=== PATIENT | male | born 1955 | race Caucasian/White ===

== ENCOUNTER 2020-03-13 07:24 | Inpatient (IN) ==
[~2020-03-13 07:24] MED LIST: Acetaminophen IV 1,000 MG/100 ML INFUS..BTL IVPB ONE
[2020-03-13] MEDS ORDERED: CeFAZolin Syr 2,000MG/20 ML 2,000 MG/20 ML SYRINGE IVPB ONE (07:40)
[2020-03-13] MEDS ORDERED: Ringers Solution, Lactated 1,000 ML IVC SCH (07:45)
[2020-03-13] MEDS ORDERED: *HR* OxyCODONE Immed Rel 5 MG TABLET PO PRN (07:53)
[2020-03-13] MEDS ORDERED: Pregabalin 75 MG CAPSULE PO ONE (07:55)
[2020-03-13] MEDS ORDERED: Ondansetron 4 MG/2 ML VIAL IVP ONE (07:56)
[2020-03-13] MEDS ORDERED: *HR* Meperidine 25 MG/ML SYRINGE IVP PRN (07:56)
[2020-03-13] MEDS ORDERED: *HR* Succinylcholine 200 MG/10 ML VIAL IVP ONE (08:04)
[2020-03-13] MEDS ORDERED: *HR* Rocuronium Bromide 50 MG/5 ML VIAL ONE (08:04)
[2020-03-13] MEDS ORDERED: Lidocaine -MPF 2% 2 ML VIAL ONE (08:04)
[2020-03-13] MEDS ORDERED: *HR* FentaNYL (PF) 100 MCG/2 ML VIAL ONE (08:04)
[2020-03-13] MEDS ORDERED: Lidocaine -MPF 4% 5 ML AMPUL ONE (08:04)
[2020-03-13] MEDS ORDERED: *HR* Propofol 200 MG/20 ML VIAL IVP ONE (08:05)
[2020-03-13] MEDS ORDERED: EPHEDrine 50 MG/ML VIAL ONE (09:28)
[2020-03-13] MEDS ORDERED: Neostigmine Methylsulfate 3 MG/3 ML SYRINGE ONE (09:57)
[2020-03-13] MEDS ORDERED: Albuterol 2.5 MG/3 ML NEBULIZER ONE (10:47)
[2020-03-13] MEDS ORDERED: Albuterol 2.5 MG/3 ML NEBULIZER IH ONE (10:49)
[2020-03-13] MEDS ORDERED: Ipratropium/Albuterol Neb 3 ML IH ONE (11:06)
[2020-03-13] MEDS ORDERED: *HR* OxyCODONE/APAP 5/325 TABLET PO PRN (12:31)
[2020-03-13] MEDS ORDERED: Naloxone 0.4 MG/ML INJ IVP PRN (12:31)
[2020-03-13] MEDS: D5% in 0.45% NACL w KCl 20 MEQ/1,000 ML MLS IVC SCH (13:19)
[2020-03-13] MEDS: Ipratropium/Albuterol Neb 3 ML IH SCH ×2 (15:27→21:29)
[2020-03-13] MEDS: *HR* HYDROmorphone PF 0.5 MG/0.5 ML SYRINGE IVP PRN (18:55)
[2020-03-14] MEDS: *HR* HYDROmorphone PF 0.5 MG/0.5 ML SYRINGE IVP PRN (00:31)
[2020-03-14] MEDS: tiZANidine 4 MG TABLET PO PRN ×2 (00:31→20:30)
[2020-03-14] MEDS: hydrOXYzine pamoate 25 MG CAPSULE PO PRN ×2 (00:31→20:29)
[2020-03-14] MEDS: Ipratropium/Albuterol Neb 3 ML IH SCH ×4 (03:48→21:48)
[2020-03-14] MEDS: (Roflumilast [Daliresp] 500 MCG) PO SCH (08:07)
[2020-03-14] MEDS: Loratadine 10 MG TABLET PO SCH (08:07)
[2020-03-14] MEDS: Aspirin 81 MG TAB.CHEW PO SCH (08:07)
[2020-03-14] MEDS ORDERED: Ondansetron 4 MG/2 ML VIAL IVP PRN (08:19)
[2020-03-14] MEDS ORDERED: NON-FORMULARY MEDICATION 1 EACH EACH (Fluticasone/Umeclidin/Vilanter [Trelegy Ellipta 100- IH SCH (09:00)
[2020-03-14] MEDS: Tiotropium 18 MCG inhalation IH SCH (09:38)
[2020-03-14] MEDS: Budesonide/Formoterol 160/4.5 1 PUFF INH IH SCH ×2 (09:38→21:48)
[2020-03-14] MEDS ORDERED: Lidocaine Jelly 6ml 1 APPL/6 ML JEL.PF.APP TP ONE (10:26)
[2020-03-14] MEDS ORDERED: *HR* Metoprolol 5 MG/5 ML VIAL IVP ONE (11:16)
[2020-03-14 11:49] LABS: Basophils % 0.1 %; Eosinophils % 0.2 %; Hematocrit 38.5 % (37.5-50.1); Hemoglobin 12.8 g/dL (12.9-16.9); Immature Granulocytes % 0.6 % (0-4); Lymphocytes # 0.4 K/mcL (0.6-4.6); Lymphocytes % 3.8 %; Mean Corpuscular HGB Conc 33.2 g/dL (31.6-35.5); Mean Corpuscular Hemoglobin 24.4 pg (28.0-33.3); Mean Corpuscular Volume 73.3 fL (83.0-100.0); Mean Platelet Volume 8.6 fL (9.4-12.4); Monocytes # 0.7 K/mcL (0.0-1.3); Neutrophils # 9.3 K/mcL (1.6-8.9); Platelet Count 302 K/mcL (140-400); Red Blood Count 5.25 M/mcL (4.19-5.50); Red Cell Distribution Width 11.8 % (11.5-14.5); Segmented Neutrophils % 88.3 %; White Blood Count 10.5 K/mcL (4.3-11.1)
[2020-03-14] MEDS: *HR* HYDROcodone/Acet 5/325 mg TABLET PO PRN ×2 (11:50→23:07)
[2020-03-14] MEDS: 0.9 % Sodium Chloride 1,000 ML IVC SCH ×2 (11:52→13:58)
[2020-03-14 12:08] LABS: Alanine Aminotransferase 8 Units/L (7-52); Albumin 3.8 g/dL (3.5-5.7); Albumin/Globulin Ratio 1.6 (1.1-2.2); Alkaline Phosphatase 119 Units/L (34-104); Aspartate Amino Transferase 10 Units/L (13-39); BUN/Creatinine Ratio 17 (6-26); Bilirubin,Total 0.9 mg/dL (0.3-1.0); Blood Urea Nitrogen 11 mg/dL (8-23); Calcium 8.5 mg/dL (8.6-10.3); Carbon Dioxide 22 mEq/L (23-29); Chloride 88 mEq/L (98-107); Globulin 2.4 g/dL (2.4-3.5); Glucose 124 mg/dL (70-105); Osmolality,Calculated 253 (280-300); Potassium 4.5 mEq/L (3.5-5.1); Sodium 121 mEq/L (136-145); Total Protein 6.2 g/dL (6.4-8.9); Troponin I < 0.03 ng/mL (< 0.04); eGFR For African Americans > 60 (> 60); eGFR For Non-African Americans > 60 (> 60)
[2020-03-14] MEDS: D5% in 0.45% NACL w KCl 20 MEQ/1,000 ML MLS IVC SCH (12:23)
[2020-03-14] MEDS ORDERED: 0.9 % Sodium Chloride 1,000 ML IVC SCH (14:00)
[2020-03-14] MEDS: *HR* Metoprolol 5 MG/5 ML VIAL IVP PRN (23:50)
[2020-03-15] MEDS: 0.9 % Sodium Chloride 1,000 ML IVC SCH ×2 (01:31→20:34)
[2020-03-15] MEDS: *HR* Metoprolol 5 MG/5 ML VIAL IVP PRN ×2 (01:31→20:34)
[2020-03-15] MEDS: Ipratropium/Albuterol Neb 3 ML IH SCH ×4 (03:46→21:48)
[2020-03-15] MEDS: Loratadine 10 MG TABLET PO SCH (08:07)
[2020-03-15] MEDS: *HR* HYDROcodone/Acet 5/325 mg TABLET PO PRN (08:08)
[2020-03-15] MEDS: (Roflumilast [Daliresp] 500 MCG) PO SCH (08:08)
[2020-03-15] MEDS: Aspirin 81 MG TAB.CHEW PO SCH (08:08)
[2020-03-15] MEDS: Budesonide/Formoterol 160/4.5 1 PUFF INH IH SCH ×2 (09:28→21:47)
[2020-03-15] MEDS: Tiotropium 18 MCG inhalation IH SCH (09:29)
[2020-03-15 10:42] LABS: BUN/Creatinine Ratio 20 (6-26); Blood Urea Nitrogen 11 mg/dL (8-23); Calcium 8.2 mg/dL (8.6-10.3); Carbon Dioxide 28 mEq/L (23-29); Chloride 92 mEq/L (98-107); Glucose 100 mg/dL (70-105); Magnesium 1.8 mg/dL (1.6-2.6); Osmolality,Calculated 261 (280-300); Phosphorous 2.7 mg/dL (2.7-4.5); Potassium 4.3 mEq/L (3.5-5.1); Sodium 126 mEq/L (136-145); eGFR For African Americans > 60 (> 60); eGFR For Non-African Americans > 60 (> 60)
[2020-03-15] MEDS: tiZANidine 4 MG TABLET PO PRN (20:33)
[2020-03-15] MEDS: hydrOXYzine pamoate 25 MG CAPSULE PO PRN (20:33)
[2020-03-15] MEDS: DilTIAZem 50 MG/50 ML IV.SOLN IVC SCH (23:43)
[2020-03-16 02:28] LABS: Hematocrit 33.4 % (37.5-50.1); Hemoglobin 10.7 g/dL (12.9-16.9); Mean Corpuscular Volume 74.9 fL (83.0-100.0); Mean Platelet Volume 8.6 fL (9.4-12.4); Platelet Count 232 K/mcL (140-400); Red Blood Count 4.46 M/mcL (4.19-5.50); Red Cell Distribution Width 11.9 % (11.5-14.5); White Blood Count 8.3 K/mcL (4.3-11.1)
[2020-03-16 02:44] LABS: BUN/Creatinine Ratio 26 (6-26); Blood Urea Nitrogen 12 mg/dL (8-23); Calcium 7.7 mg/dL (8.6-10.3); Carbon Dioxide 24 mEq/L (23-29); Chloride 93 mEq/L (98-107); Glucose 99 mg/dL (70-105); Magnesium 1.7 mg/dL (1.6-2.6); Osmolality,Calculated 262 (280-300); Phosphorous 2.5 mg/dL (2.7-4.5); Potassium 3.9 mEq/L (3.5-5.1); Sodium 126 mEq/L (136-145); eGFR For African Americans > 60 (> 60); eGFR For Non-African Americans > 60 (> 60)
[2020-03-16] MEDS: Levalbuterol Neb 1.25 MG/3 ML IH SCH ×6 (03:28→23:47)
[2020-03-16] MEDS ORDERED: *HR* Enoxaparin 40 MG/0.4 ML SYRINGE SQ SCH (06:00)
[2020-03-16] MEDS ORDERED: Sodium Phosphate 30 MMOL in 0.9 % Sodium Chloride 100 ML IVPB ONE (08:09)
[2020-03-16] MEDS: (Roflumilast [Daliresp] 500 MCG) PO SCH (09:10)
[2020-03-16] MEDS: Aspirin 81 MG TAB.CHEW PO SCH (09:10)
[2020-03-16] MEDS: Loratadine 10 MG TABLET PO SCH (09:10)
[2020-03-16] MEDS ORDERED: Ipratropium Neb 0.5 MG NEBULIZER ONE (10:15)
[2020-03-16] MEDS: Tiotropium 18 MCG inhalation IH SCH (10:28)
[2020-03-16] MEDS: Ipratropium Neb 0.5 MG NEBULIZER IH SCH ×5 (10:29→23:47)
[2020-03-16] MEDS: Budesonide/Formoterol 160/4.5 1 PUFF INH IH SCH ×2 (10:29→20:20)
[2020-03-16] MEDS: DilTIAZem 50 MG/50 ML IV.SOLN IVC SCH (10:40)
[2020-03-16] MEDS: MethylPREDNISolone 40 MG/ML VIAL IVP SCH ×3 (10:41→23:46)
[2020-03-16] MEDS: cefTRIAXone 1,000 MG in Water for inj. (sterile) 10 ML IVP SCH (10:41)
[2020-03-16] MEDS: Azithromycin 500 MG in 0.9 % Sodium Chloride 250 ML IVPB SCH (10:55)
[2020-03-16] MEDS: *HR* Enoxaparin 80 MG/0.8 ML SYRINGE SQ SCH (17:37)
[2020-03-16] MEDS: *HR* Metoprolol 5 MG/5 ML VIAL IVP PRN (17:49)
[2020-03-16] MEDS ORDERED: Perflutren Lipid Microsphere 1.3 ML in 0.9 % Sodium Chloride 8.7 ML IVP ONE (19:58)
[2020-03-16] MEDS: 0.9 % Sodium Chloride 1,000 ML IVC SCH (21:12)
[2020-03-16] MEDS ORDERED: *HR* Metoprolol 5 MG/5 ML VIAL IVP ONE (23:39)
[2020-03-17] MEDS: Levalbuterol Neb 1.25 MG/3 ML IH SCH ×6 (03:46→23:58)
[2020-03-17] MEDS: Ipratropium Neb 0.5 MG NEBULIZER IH SCH ×3 (03:46→11:15)
[2020-03-17] MEDS: *HR* Enoxaparin 80 MG/0.8 ML SYRINGE SQ SCH (05:48)
[2020-03-17] MEDS: DilTIAZem 50 MG/50 ML IV.SOLN IVC SCH (05:49)
[2020-03-17 06:52] LABS: Hematocrit 35.8 % (37.5-50.1); Hemoglobin 11.7 g/dL (12.9-16.9); Mean Corpuscular HGB Conc 32.7 g/dL (31.6-35.5); Mean Corpuscular Hemoglobin 24.6 pg (28.0-33.3); Mean Corpuscular Volume 75.4 fL (83.0-100.0); Mean Platelet Volume 8.9 fL (9.4-12.4); Platelet Count 307 K/mcL (140-400); Red Blood Count 4.75 M/mcL (4.19-5.50); Red Cell Distribution Width 11.9 % (11.5-14.5); White Blood Count 4.8 K/mcL (4.3-11.1)
[2020-03-17 07:10] LABS: BUN/Creatinine Ratio 43 (6-26); Blood Urea Nitrogen 20 mg/dL (8-23); Calcium 8.3 mg/dL (8.6-10.3); Carbon Dioxide 23 mEq/L (23-29); Chloride 95 mEq/L (98-107); Glucose 159 mg/dL (70-105); Osmolality,Calculated 274 (280-300); Potassium 4.2 mEq/L (3.5-5.1); Sodium 129 mEq/L (136-145); eGFR For African Americans > 60 (> 60); eGFR For Non-African Americans > 60 (> 60)
[2020-03-17 07:14] LABS: Thyroid Stimulating Hormone 0.111 mcIU/mL (0.340-5.600)
[2020-03-17] MEDS: Budesonide/Formoterol 160/4.5 1 PUFF INH IH SCH ×2 (07:30→20:47)
[2020-03-17] MEDS: Tiotropium 18 MCG inhalation IH SCH (07:32)
[2020-03-17] MEDS: Loratadine 10 MG TABLET PO SCH (10:55)
[2020-03-17] MEDS: Aspirin 81 MG TAB.CHEW PO SCH (10:55)
[2020-03-17] MEDS: Azithromycin 500 MG in 0.9 % Sodium Chloride 250 ML IVPB SCH (10:56)
[2020-03-17] MEDS: DilTIAZem CD (24hr) 120 MG CAP.ER.24H PO SCH (10:56)
[2020-03-17] MEDS: cefTRIAXone 1,000 MG in Water for inj. (sterile) 10 ML IVP SCH (10:56)
[2020-03-17] MEDS: MethylPREDNISolone 40 MG/ML VIAL IVP SCH ×3 (10:57→23:07)
[2020-03-17] MEDS: Metoprolol XL (24 HR) Succ 25 MG TAB.ER.24H PO SCH ×2 (13:39→20:30)
[2020-03-17] MEDS: Acetylcysteine 10% 2 ML INHSOL IH SCH ×3 (15:34→23:58)
[2020-03-17] MEDS: 0.9 % Sodium Chloride 1,000 ML IVC SCH (17:28)
[2020-03-17] MEDS: Apixaban 5 MG TABLET PO SCH (20:30)
[2020-03-18] MEDS: Levalbuterol Neb 1.25 MG/3 ML IH SCH ×6 (04:13→23:45)
[2020-03-18] MEDS ORDERED: Ipratropium Neb 0.5 MG NEBULIZER ONE (07:22)
[2020-03-18] MEDS: Ipratropium Neb 0.5 MG NEBULIZER IH SCH ×5 (07:23→23:45)
[2020-03-18] MEDS: Budesonide/Formoterol 160/4.5 1 PUFF INH IH SCH ×2 (07:24→19:22)
[2020-03-18] MEDS: Acetylcysteine 10% 2 ML INHSOL IH SCH (07:24)
[2020-03-18 07:50] LABS: BUN/Creatinine Ratio 72 (6-26); Blood Urea Nitrogen 31 mg/dL (8-23); Calcium 8.8 mg/dL (8.6-10.3); Carbon Dioxide 29 mEq/L (23-29); Chloride 98 mEq/L (98-107); Glucose 149 mg/dL (70-105); Magnesium 2.1 mg/dL (1.6-2.6); Osmolality,Calculated 287 (280-300); Phosphorous 2.7 mg/dL (2.7-4.5); Potassium 4.4 mEq/L (3.5-5.1); Sodium 134 mEq/L (136-145); eGFR For African Americans > 60 (> 60); eGFR For Non-African Americans > 60 (> 60)
[2020-03-18 07:57] LABS: Eosinophils % 0.2 %; Hematocrit 33.6 % (37.5-50.1); Hemoglobin 10.9 g/dL (12.9-16.9); Immature Granulocytes % 0.8 % (0-4); Lymphocytes # 0.3 K/mcL (0.6-4.6); Lymphocytes % 6.6 %; Mean Corpuscular HGB Conc 32.4 g/dL (31.6-35.5); Mean Corpuscular Hemoglobin 24.3 pg (28.0-33.3); Mean Corpuscular Volume 74.8 fL (83.0-100.0); Mean Platelet Volume 9.1 fL (9.4-12.4); Monocytes # 0.3 K/mcL (0.0-1.3); Monocytes % 5.6 %; Neutrophils # 4.5 K/mcL (1.6-8.9); Platelet Count 295 K/mcL (140-400); Red Blood Count 4.49 M/mcL (4.19-5.50); Red Cell Distribution Width 12.1 % (11.5-14.5); Segmented Neutrophils % 86.8 %; White Blood Count 5.2 K/mcL (4.3-11.1)
[2020-03-18] MEDS: Azithromycin 500 MG in 0.9 % Sodium Chloride 250 ML IVPB SCH (10:31)
[2020-03-18] MEDS: cefTRIAXone 1,000 MG in Water for inj. (sterile) 10 ML IVP SCH (10:31)
[2020-03-18] MEDS: Metoprolol XL (24 HR) Succ 25 MG TAB.ER.24H PO SCH ×2 (10:32→20:07)
[2020-03-18] MEDS: Loratadine 10 MG TABLET PO SCH (10:32)
[2020-03-18] MEDS: Aspirin 81 MG TAB.CHEW PO SCH (10:32)
[2020-03-18] MEDS: MethylPREDNISolone 40 MG/ML VIAL IVP SCH (10:32)
[2020-03-18] MEDS: DilTIAZem CD (24hr) 120 MG CAP.ER.24H PO SCH (10:32)
[2020-03-18] MEDS: Apixaban 5 MG TABLET PO SCH ×2 (10:32→20:07)
[2020-03-18] MEDS ORDERED: *HR* Belladonna Alkaloids/Opium 30 MG RECTAL SUPPOSITORY RC ONE (16:05)
[2020-03-18] MEDS ORDERED: Azithromycin 250 MG TABLET PO SCH (16:15)
[2020-03-18] MEDS: 0.9 % Sodium Chloride 1,000 ML IVC SCH (16:41)
[2020-03-19] MEDS: Levalbuterol Neb 1.25 MG/3 ML IH SCH ×6 (03:15→23:51)
[2020-03-19] MEDS: Ipratropium Neb 0.5 MG NEBULIZER IH SCH ×6 (03:15→23:52)
[2020-03-19 04:15] LABS: Hematocrit 32.4 % (37.5-50.1); Hemoglobin 10.3 g/dL (12.9-16.9); Immature Granulocytes % 0.7 % (0-4); Lymphocytes # 0.4 K/mcL (0.6-4.6); Lymphocytes % 6.8 %; Mean Corpuscular HGB Conc 31.8 g/dL (31.6-35.5); Mean Corpuscular Hemoglobin 24.8 pg (28.0-33.3); Mean Corpuscular Volume 77.9 fL (83.0-100.0); Mean Platelet Volume 8.5 fL (9.4-12.4); Monocytes # 0.4 K/mcL (0.0-1.3); Monocytes % 6.8 %; Neutrophils # 4.8 K/mcL (1.6-8.9); Platelet Count 259 K/mcL (140-400); Red Blood Count 4.16 M/mcL (4.19-5.50); Red Cell Distribution Width 12.1 % (11.5-14.5); Segmented Neutrophils % 85.7 %; White Blood Count 5.6 K/mcL (4.3-11.1)
[2020-03-19 04:38] LABS: BUN/Creatinine Ratio 71 (6-26); Blood Urea Nitrogen 30 mg/dL (8-23); Calcium 8.7 mg/dL (8.6-10.3); Carbon Dioxide 32 mEq/L (23-29); Chloride 97 mEq/L (98-107); Glucose 146 mg/dL (70-105); Osmolality,Calculated 287 (280-300); Phosphorous 2.8 mg/dL (2.7-4.5); Potassium 3.9 mEq/L (3.5-5.1); Sodium 134 mEq/L (136-145); eGFR For African Americans > 60 (> 60); eGFR For Non-African Americans > 60 (> 60)
[2020-03-19] MEDS: Budesonide/Formoterol 160/4.5 1 PUFF INH IH SCH ×2 (07:39→19:28)
[2020-03-19 08:00] LABS: % Iron Saturation 24 % (20-55); Iron 66 mcg/dL (65-175); Transferrin 197 mg/dL (203-362)
[2020-03-19] MEDS: Azithromycin 250 MG TABLET PO SCH (08:57)
[2020-03-19] MEDS: Metoprolol XL (24 HR) Succ 25 MG TAB.ER.24H PO SCH ×2 (08:57→20:26)
[2020-03-19] MEDS: Loratadine 10 MG TABLET PO SCH (08:58)
[2020-03-19] MEDS: predniSONE 20 MG TABLET PO SCH (08:58)
[2020-03-19] MEDS: hydrOXYzine pamoate 25 MG CAPSULE PO PRN ×3 (08:59→20:26)
[2020-03-19] MEDS: Aspirin 81 MG TAB.CHEW PO SCH (08:59)
[2020-03-19] MEDS: DilTIAZem CD (24hr) 120 MG CAP.ER.24H PO SCH (08:59)
[2020-03-19] MEDS: Apixaban 5 MG TABLET PO SCH ×2 (08:59→09:06)
[2020-03-19] MEDS: cefTRIAXone 1,000 MG in Water for inj. (sterile) 10 ML IVP SCH (08:59)
[2020-03-19] MEDS: tiZANidine 4 MG TABLET PO PRN ×3 (08:59→22:29)
[2020-03-20] MEDS: Ipratropium Neb 0.5 MG NEBULIZER IH SCH ×4 (03:56→15:53)
[2020-03-20] MEDS: Levalbuterol Neb 1.25 MG/3 ML IH SCH ×4 (03:56→15:53)
[2020-03-20 06:44] LABS: Basophils % 0.2 %; Eosinophils % 0.3 %; Hematocrit 36.9 % (37.5-50.1); Hemoglobin 11.3 g/dL (12.9-16.9); Immature Granulocytes % 0.5 % (0-4); Lymphocytes # 0.7 K/mcL (0.6-4.6); Lymphocytes % 12.5 %; Mean Corpuscular HGB Conc 30.6 g/dL (31.6-35.5); Mean Corpuscular Hemoglobin 23.9 pg (28.0-33.3); Mean Corpuscular Volume 78.2 fL (83.0-100.0); Mean Platelet Volume 8.2 fL (9.4-12.4); Monocytes # 0.6 K/mcL (0.0-1.3); Monocytes % 10.2 %; Neutrophils # 4.4 K/mcL (1.6-8.9); Platelet Count 243 K/mcL (140-400); Red Blood Count 4.72 M/mcL (4.19-5.50); Red Cell Distribution Width 11.9 % (11.5-14.5); Segmented Neutrophils % 76.3 %; White Blood Count 5.8 K/mcL (4.3-11.1)
[2020-03-20 07:16] LABS: BUN/Creatinine Ratio 51 (6-26); Blood Urea Nitrogen 22 mg/dL (8-23); Calcium 8.8 mg/dL (8.6-10.3); Carbon Dioxide 33 mEq/L (23-29); Chloride 96 mEq/L (98-107); Glucose 101 mg/dL (70-105); Magnesium 2.1 mg/dL (1.6-2.6); Osmolality,Calculated 283 (280-300); Potassium 3.8 mEq/L (3.5-5.1); Sodium 135 mEq/L (136-145); eGFR For African Americans > 60 (> 60); eGFR For Non-African Americans > 60 (> 60)
[2020-03-20] MEDS: Budesonide/Formoterol 160/4.5 1 PUFF INH IH SCH (07:31)
[2020-03-20] MEDS: cefTRIAXone 1,000 MG in Water for inj. (sterile) 10 ML IVP SCH (08:02)
[2020-03-20] MEDS: Loratadine 10 MG TABLET PO SCH (08:03)
[2020-03-20] MEDS: Aspirin 81 MG TAB.CHEW PO SCH (08:03)
[2020-03-20] MEDS: DilTIAZem CD (24hr) 120 MG CAP.ER.24H PO SCH (08:03)
[2020-03-20] MEDS: Azithromycin 250 MG TABLET PO SCH (08:03)
[2020-03-20] MEDS: Metoprolol XL (24 HR) Succ 25 MG TAB.ER.24H PO SCH (08:03)
[2020-03-20] MEDS: predniSONE 20 MG TABLET PO SCH (08:03)
[2020-03-20] MEDS: hydrOXYzine pamoate 25 MG CAPSULE PO PRN ×2 (08:04→14:12)
[2020-03-20] MEDS: tiZANidine 4 MG TABLET PO PRN ×2 (08:04→14:12)
[2020-03-20 11:48] VITALS: BP 122/75
== END 2020-03-20 17:34 | DRG 350 ==
LOC: SAMDAY 07:24 → 2ANU 12:59 → SUATTDRO 03-15 10:29
PROVIDERS: ADMIT Surgery; ATTEND Internal Medicine

== ENCOUNTER 2020-04-15 13:53 | Inpatient (IN) ==
[2020-04-15] MEDS ORDERED: methylPREDNISolone 125 MG/2 ML VIAL IVP ONE (14:19)
[2020-04-15] MEDS ORDERED: Isovue-370 500 ML BOTTLE IVP ONE (14:23)
[2020-04-15 14:45] LABS: Basophils % 0.2 %; Eosinophils % 0.2 %; Hematocrit 38.8 % (37.5-50.1); Hemoglobin 12.4 g/dL (12.9-16.9); Immature Granulocytes % 0.5 % (0-4); Lymphocytes # 0.8 K/mcL (0.6-4.6); Lymphocytes % 6.9 %; Mean Corpuscular Hemoglobin 25.2 pg (28.0-33.3); Mean Corpuscular Volume 78.9 fL (83.0-100.0); Mean Platelet Volume 8.7 fL (9.4-12.4); Monocytes # 0.6 K/mcL (0.0-1.3); Monocytes % 5.2 %; Neutrophils # 10.5 K/mcL (1.6-8.9); Platelet Count 229 K/mcL (140-400); Red Blood Count 4.92 M/mcL (4.19-5.50); Red Cell Distribution Width 14.3 % (11.5-14.5)
[2020-04-15 14:56] LABS: BUN/Creatinine Ratio 33 (6-26); Blood Urea Nitrogen 16 mg/dL (8-23); Calcium 8.6 mg/dL (8.6-10.3); Carbon Dioxide 30 mEq/L (23-29); Chloride 97 mEq/L (98-107); Glucose 110 mg/dL (70-105); Osmolality,Calculated 284 (280-300); Potassium 3.2 mEq/L (3.5-5.1); Sodium 136 mEq/L (136-145); eGFR For African Americans > 60 (> 60); eGFR For Non-African Americans > 60 (> 60)
[2020-04-15] MEDS ORDERED: Potassium Chloride Elixir 20 MEQ/15 ML UDC PO ONE (15:22)
[2020-04-15] MEDS ORDERED: Piperacillin/Tazobactam 3.375 GM in 0.9 % Sodium Chloride Mini Bag 100 ML IVPB ONE (16:17)
[2020-04-15] MEDS ORDERED: Acetaminophen 325 MG TABLET PO PRN (16:44)
[2020-04-15] MEDS ORDERED: Ondansetron 4 MG/2 ML VIAL IVP PRN (16:44)
[2020-04-15 17:06] LABS: Adenovirus Not Detected (Not Detect); Bordetella Pertussis Not Detected (Not Detect); Chlamydophila pneumoniae Not Detected (Not Detect); Coronavirus 229E Not Detected (Not Detect); Coronavirus HKU1 Not Detected (Not Detect); Coronavirus NL63 Not Detected (Not Detect); Coronavirus OC43 Not Detected (Not Detect); Human Metapneumovirus Not Detected (Not Detect); Human Rhinovirus/Enterovirus Not Detected (Not Detect); Influenza A Subtype 2009 H1 Not Detected (Not Detect); Influenza B Not Detected (Not Detect); Mycoplasma pneumoniae Not Detected (Not Detect); Parainfluenza Virus 1 Not Detected (Not Detect); Parainfluenza Virus 2 Not Detected (Not Detect); Parainfluenza Virus 3 Not Detected (Not Detect); Parainfluenza Virus 4 Not Detected (Not Detect); Respiratory Syncytial Virus Not Detected (Not Detect)
[2020-04-15 17:45] LABS: Lactate Dehydrogenase 206 Units/L (140-271); Uric Acid 2.2 mg/dL (2.3-7.6)
[2020-04-15] MEDS: Ipratropium/Albuterol Neb 3 ML IH SCH ×2 (18:02→21:24)
[2020-04-15 18:03] LABS: INR 1.8; Prothrombin Time 20.8 Seconds (9.4-12.1)
[2020-04-15 18:06] LABS: Activated Partial Thrombo Time 40.4 Seconds (26.0-36.0)
[2020-04-15] MEDS: Piperacillin/Tazobactam 3.375 GM in 0.9 % Sodium Chloride Mini Bag 100 ML IVPB SCH (23:51)
[2020-04-16] MEDS: Ipratropium/Albuterol Neb 3 ML IH SCH ×4 (03:13→22:55)
[2020-04-16 03:48] LABS: Hematocrit 33.6 % (37.5-50.1); Hemoglobin 10.9 g/dL (12.9-16.9); Mean Corpuscular HGB Conc 32.4 g/dL (31.6-35.5); Mean Corpuscular Hemoglobin 25.3 pg (28.0-33.3); Platelet Count 220 K/mcL (140-400); Red Blood Count 4.31 M/mcL (4.19-5.50); Red Cell Distribution Width 14.1 % (11.5-14.5); White Blood Count 4.6 K/mcL (4.3-11.1)
[2020-04-16 04:00] LABS: INR 1.5; Prothrombin Time 16.9 Seconds (9.4-12.1)
[2020-04-16 04:16] LABS: BUN/Creatinine Ratio 42 (6-26); Blood Urea Nitrogen 15 mg/dL (8-23); Calcium 8.2 mg/dL (8.6-10.3); Carbon Dioxide 26 mEq/L (23-29); Chloride 103 mEq/L (98-107); Glucose 146 mg/dL (70-105); Magnesium 1.9 mg/dL (1.6-2.6); Osmolality,Calculated 283 (280-300); Phosphorous 2.8 mg/dL (2.7-4.5); Potassium 4.5 mEq/L (3.5-5.1); Sodium 135 mEq/L (136-145); eGFR For African Americans > 60 (> 60); eGFR For Non-African Americans > 60 (> 60)
[2020-04-16 04:19] LABS: Troponin I 0.04 ng/mL (< 0.04)
[2020-04-16] MEDS: Piperacillin/Tazobactam 3.375 GM in 0.9 % Sodium Chloride Mini Bag 100 ML IVPB SCH ×2 (08:30→15:39)
[2020-04-16] MEDS ORDERED: (Roflumilast [Daliresp] 500 MCG) PO SCH (09:00)
[2020-04-16] MEDS ORDERED: NON-FORMULARY MEDICATION 1 EACH EACH (Fluticasone/Umeclidin/Vilanter [Trelegy Ellipta 100- IH SCH (09:00)
[2020-04-16] MEDS ORDERED: *HR* Midazolam HCl 2 MG/2 ML VIAL ONE (09:07)
[2020-04-16] MEDS ORDERED: *HR* FentaNYL (PF) 100 MCG/2 ML VIAL ONE (09:07)
[2020-04-16] MEDS ORDERED: *HR* Propofol 200 MG/20 ML VIAL IVP ONE (09:08)
[2020-04-16] MEDS ORDERED: Tiotropium 18 MCG inhalation IH SCH (10:00)
[2020-04-16] MEDS: Budesonide/Formoterol 160/4.5 1 PUFF INH IH SCH ×2 (10:11→22:56)
[2020-04-16] MEDS ORDERED: Lidocaine -MPF 2% 2 ML VIAL ONE (11:09)
[2020-04-16] MEDS ORDERED: Ondansetron 4 MG/2 ML VIAL ONE (11:09)
[2020-04-16] MEDS ORDERED: *HR* Rocuronium Bromide 50 MG/5 ML VIAL ONE (11:09)
[2020-04-16] MEDS ORDERED: Dexamethasone 4 MG/ML VIAL ONE (11:09)
[2020-04-16] MEDS ORDERED: *HR* PHENYLEPHRINE 1,000 MCG/10 ML SYRINGE IVP ONE (11:10)
[2020-04-16] MEDS ORDERED: Azithromycin 250 MG TABLET PO ONE (12:39)
[2020-04-16] MEDS: DilTIAZem CD (24hr) 120 MG CAP.ER.24H PO SCH (12:48)
[2020-04-16] MEDS: Loratadine 10 MG TABLET PO SCH (12:50)
[2020-04-16] MEDS: predniSONE 20 MG TABLET PO SCH (12:51)
[2020-04-16] MEDS: Aspirin 81 MG TAB.CHEW PO SCH (12:51)
[2020-04-16] MEDS: Fluticasone Propionate Nasal 50 MCG/SPRAY BOTTLE NS SCH (12:58)
[2020-04-16] MEDS: Apixaban 5 MG TABLET PO SCH ×2 (13:01→20:05)
[2020-04-16 14:35] LABS: Appearance of Body Fluid Slightly Hazy (Clear); Volume of Body Fluid 15 mL
[2020-04-17] MEDS: Piperacillin/Tazobactam 3.375 GM in 0.9 % Sodium Chloride Mini Bag 100 ML IVPB SCH ×4 (00:11→23:43)
[2020-04-17] MEDS: Ipratropium/Albuterol Neb 3 ML IH SCH ×4 (03:37→21:42)
[2020-04-17 04:34] LABS: Hematocrit 35.5 % (37.5-50.1); Mean Corpuscular Hemoglobin 24.4 pg (28.0-33.3); Mean Corpuscular Volume 78.9 fL (83.0-100.0); Mean Platelet Volume 8.9 fL (9.4-12.4); Platelet Count 263 K/mcL (140-400); Red Cell Distribution Width 14.5 % (11.5-14.5)
[2020-04-17 04:44] LABS: BUN/Creatinine Ratio 43 (6-26); Blood Urea Nitrogen 17 mg/dL (8-23); Calcium 7.9 mg/dL (8.6-10.3); Carbon Dioxide 30 mEq/L (23-29); Chloride 102 mEq/L (98-107); Glucose 143 mg/dL (70-105); Osmolality,Calculated 286 (280-300); Potassium 4.1 mEq/L (3.5-5.1); Sodium 136 mEq/L (136-145); eGFR For African Americans > 60 (> 60); eGFR For Non-African Americans > 60 (> 60)
[2020-04-17] MEDS: Aspirin 81 MG TAB.CHEW PO SCH (08:11)
[2020-04-17] MEDS: Azithromycin 250 MG TABLET PO SCH (08:11)
[2020-04-17] MEDS: DilTIAZem CD (24hr) 120 MG CAP.ER.24H PO SCH (08:11)
[2020-04-17] MEDS: Fluticasone Propionate Nasal 50 MCG/SPRAY BOTTLE NS SCH (08:12)
[2020-04-17] MEDS: Apixaban 5 MG TABLET PO SCH ×2 (08:12→21:08)
[2020-04-17] MEDS: predniSONE 20 MG TABLET PO SCH (08:12)
[2020-04-17] MEDS: Loratadine 10 MG TABLET PO SCH (08:12)
[2020-04-17] MEDS: Budesonide/Formoterol 160/4.5 1 PUFF INH IH SCH ×2 (11:01→21:42)
[2020-04-18] MEDS: Ipratropium/Albuterol Neb 3 ML IH SCH ×4 (03:53→21:28)
[2020-04-18] MEDS ORDERED: 0.9 % Sodium Chloride 250 ML IVC ONE (04:37)
[2020-04-18] MEDS: Fluticasone Propionate Nasal 50 MCG/SPRAY BOTTLE NS SCH (08:35)
[2020-04-18] MEDS: Aspirin 81 MG TAB.CHEW PO SCH (08:37)
[2020-04-18] MEDS: Azithromycin 250 MG TABLET PO SCH (08:37)
[2020-04-18] MEDS: Apixaban 5 MG TABLET PO SCH ×2 (08:38→20:50)
[2020-04-18] MEDS: Loratadine 10 MG TABLET PO SCH (08:38)
[2020-04-18] MEDS: Piperacillin/Tazobactam 3.375 GM in 0.9 % Sodium Chloride Mini Bag 100 ML IVPB SCH (08:38)
[2020-04-18] MEDS: predniSONE 20 MG TABLET PO SCH (08:38)
[2020-04-18] MEDS: DilTIAZem CD (24hr) 120 MG CAP.ER.24H PO SCH (08:38)
[2020-04-18] MEDS: Budesonide/Formoterol 160/4.5 1 PUFF INH IH SCH ×2 (09:27→21:28)
[2020-04-19 03:00] LABS: Hematocrit 37.1 % (37.5-50.1); Hemoglobin 11.6 g/dL (12.9-16.9); Mean Corpuscular HGB Conc 31.3 g/dL (31.6-35.5); Mean Corpuscular Hemoglobin 24.5 pg (28.0-33.3); Mean Corpuscular Volume 78.4 fL (83.0-100.0); Mean Platelet Volume 8.5 fL (9.4-12.4); Platelet Count 257 K/mcL (140-400); Red Blood Count 4.73 M/mcL (4.19-5.50); Red Cell Distribution Width 14.2 % (11.5-14.5); White Blood Count 6.6 K/mcL (4.3-11.1)
[2020-04-19 03:21] LABS: BUN/Creatinine Ratio 26 (6-26); Blood Urea Nitrogen 10 mg/dL (8-23); Calcium 8.3 mg/dL (8.6-10.3); Carbon Dioxide 31 mEq/L (23-29); Chloride 98 mEq/L (98-107); Glucose 94 mg/dL (70-105); Osmolality,Calculated 279 (280-300); Sodium 135 mEq/L (136-145); eGFR For African Americans > 60 (> 60); eGFR For Non-African Americans > 60 (> 60)
[2020-04-19] MEDS: Ipratropium/Albuterol Neb 3 ML IH SCH ×2 (03:56→10:26)
[2020-04-19] MEDS: Apixaban 5 MG TABLET PO SCH (07:46)
[2020-04-19] MEDS: Azithromycin 250 MG TABLET PO SCH (07:46)
[2020-04-19] MEDS: predniSONE 20 MG TABLET PO SCH (07:46)
[2020-04-19] MEDS: Loratadine 10 MG TABLET PO SCH (07:47)
[2020-04-19] MEDS: Aspirin 81 MG TAB.CHEW PO SCH (07:47)
[2020-04-19] MEDS: DilTIAZem CD (24hr) 120 MG CAP.ER.24H PO SCH (07:47)
[2020-04-19] MEDS: Fluticasone Propionate Nasal 50 MCG/SPRAY BOTTLE NS SCH (07:49)
[2020-04-19] MEDS ORDERED: Sulfamethoxazole/Trimeth DS 1 EACH TABLET PO SCH ×2 (08:41→14:00)
[2020-04-19] MEDS: Budesonide/Formoterol 160/4.5 1 PUFF INH IH SCH (10:26)
[2020-04-19 10:31] VITALS: BP 152/89
== END 2020-04-19 12:25 | DRG 871 ==
LOC: EMEROOARM 13:53 → 3ANU 13:53 → SUATTDRO 17:31 → 3ANU 17:54
PROVIDERS: ADMIT Internal Medicine; ATTEND Internal Medicine

== ENCOUNTER 2020-05-12 17:29 | Inpatient (IN) ==
[2020-05-12] MEDS ORDERED: Ipratropium/Albuterol Neb 3 ML IH ONE ×2 (17:38→23:32)
[2020-05-12] MEDS ORDERED: methylPREDNISolone 125 MG/2 ML VIAL IVP ONE (17:42)
[2020-05-12 18:08] LABS: Hematocrit 37.9 % (37.5-50.1); Hemoglobin 11.9 g/dL (12.9-16.9); Immature Granulocytes % 0.7 % (0-4); Lymphocytes # 0.5 K/mcL (0.6-4.6); Lymphocytes % 2.6 %; Mean Corpuscular HGB Conc 31.4 g/dL (31.6-35.5); Mean Corpuscular Hemoglobin 25.3 pg (28.0-33.3); Mean Corpuscular Volume 80.6 fL (83.0-100.0); Mean Platelet Volume 9.4 fL (9.4-12.4); Monocytes # 0.7 K/mcL (0.0-1.3); Monocytes % 3.3 %; Neutrophils # 19.3 K/mcL (1.6-8.9); Platelet Count 307 K/mcL (140-400); Segmented Neutrophils % 93.4 %; White Blood Count 20.6 K/mcL (4.3-11.1)
[2020-05-12 18:14] LABS: VBG HCO3 29 mEq/L (21-27); VBG PCO2 44 mmHg (41-51); VBG PH 7.42 pH Units (7.32-7.42); VBG PO2 92 mmHg (25-50)
[2020-05-12 18:15] LABS: INR 1.8; Prothrombin Time 19.9 Seconds (9.4-12.1)
[2020-05-12 18:18] LABS: Activated Partial Thrombo Time 32.6 Seconds (26.0-36.0)
[2020-05-12 18:46] LABS: Alanine Aminotransferase 23 Units/L (7-52); Albumin 3.4 g/dL (3.5-5.7); Albumin/Globulin Ratio 1.3 (1.1-2.2); Alkaline Phosphatase 82 Units/L (34-104); Aspartate Amino Transferase 15 Units/L (13-39); BUN/Creatinine Ratio 52 (6-26); Bilirubin,Direct 0.3 mg/dL (0.0-0.2); Bilirubin,Indirect 0.8 mg/dL (0.0-1.0); Bilirubin,Total 1.1 mg/dL (0.3-1.0); Blood Urea Nitrogen 24 mg/dL (8-23); Calcium 8.8 mg/dL (8.6-10.3); Carbon Dioxide 27 mEq/L (23-29); Chloride 100 mEq/L (98-107); Globulin 2.7 g/dL (2.4-3.5); Glucose 128 mg/dL (70-105); Osmolality,Calculated 290 (280-300); Potassium 3.7 mEq/L (3.5-5.1); Sodium 137 mEq/L (136-145); Total Protein 6.1 g/dL (6.4-8.9); Troponin I < 0.03 ng/mL (< 0.04); eGFR For African Americans > 60 (> 60); eGFR For Non-African Americans > 60 (> 60)
[2020-05-12] MEDS ORDERED: Azithromycin 500 MG in 0.9 % Sodium Chloride 250 ML IVPB ONE (19:34)
[2020-05-12] MEDS ORDERED: cefTRIAXone 1,000 MG in Water for inj. (sterile) 10 ML IVP ONE (19:34)
[2020-05-12 20:00] LABS: Amorphous Sediment,Urine Few per hpf (None-Few); Bacteria,Urine Few per hpf (None-Few); Bilirubin,Urine Negative (Negative); Blood,Urine Negative (Negative); Clarity,Urine Clear (Clear); Color,Urine Yellow (Yellow); Glucose,Urine (UA) Normal (Normal); Ketones,Urine 10 mg/dL (Negative); Leukocyte Esterase,Urine Small (Negative); Mucus,Urine Few per lpf (None-Few); Nitrite,Urine Negative (Negative); PH,Urine 6.5 pH Units (5.0-8.0); Protein,Urine Trace mg/dL (Neg-Trace); Specific Gravity,Urine 1.026 (1.010-1.025)
[2020-05-12 22:22] LABS: Adenovirus Not Detected (Not Detect); Coronavirus 229E Not Detected (Not Detect); Coronavirus HKU1 Not Detected (Not Detect); Coronavirus NL63 Not Detected (Not Detect); Coronavirus OC43 Not Detected (Not Detect)
[2020-05-12 22:23] LABS: Bordetella Pertussis Not Detected (Not Detect); Chlamydophila pneumoniae Not Detected (Not Detect); Human Metapneumovirus Not Detected (Not Detect); Human Rhinovirus/Enterovirus Not Detected (Not Detect); Influenza A Subtype 2009 H1 Not Detected (Not Detect); Influenza B Not Detected (Not Detect); Mycoplasma pneumoniae Not Detected (Not Detect); Parainfluenza Virus 1 Not Detected (Not Detect); Parainfluenza Virus 2 Not Detected (Not Detect); Parainfluenza Virus 3 Not Detected (Not Detect); Parainfluenza Virus 4 Not Detected (Not Detect); Respiratory Syncytial Virus Not Detected (Not Detect); SARS-CoV-2 Not Detected (Not Detect)
[2020-05-12] MEDS ORDERED: Naloxone 0.4 MG/ML INJ IVP PRN (23:50)
[2020-05-12] MEDS ORDERED: *HR* Promethazine 25 MG/ML VIAL IVP PRN (23:50)
[2020-05-12] MEDS ORDERED: Morphine Sulfate 2 MG/ML SYRINGE IVP ONE (23:55)
[2020-05-13] MEDS ORDERED: Ampicillin/Sulbactam 3,000 MG in 0.9 % Sodium Chloride Mini Bag 100 ML IVPB SCH
[2020-05-13] MEDS: MethylPREDNISolone 40 MG/ML VIAL IVP SCH ×3 (00:20→17:09)
[2020-05-13 00:25] LABS: Basophils % 0.2 %; Hematocrit 38.4 % (37.5-50.1); Hemoglobin 12.4 g/dL (12.9-16.9); Immature Granulocytes % 0.6 % (0-4); Lymphocytes # 0.2 K/mcL (0.6-4.6); Lymphocytes % 1.1 %; Mean Corpuscular HGB Conc 32.3 g/dL (31.6-35.5); Mean Corpuscular Hemoglobin 26.3 pg (28.0-33.3); Mean Corpuscular Volume 81.4 fL (83.0-100.0); Mean Platelet Volume 9.3 fL (9.4-12.4); Monocytes # 0.2 K/mcL (0.0-1.3); Monocytes % 1.2 %; Neutrophils # 18.2 K/mcL (1.6-8.9); Platelet Count 283 K/mcL (140-400); Red Blood Count 4.72 M/mcL (4.19-5.50); Segmented Neutrophils % 96.9 %; White Blood Count 18.8 K/mcL (4.3-11.1)
[2020-05-13 00:45] LABS: BUN/Creatinine Ratio 55 (6-26); Blood Urea Nitrogen 24 mg/dL (8-23); Calcium 8.9 mg/dL (8.6-10.3); Carbon Dioxide 25 mEq/L (23-29); Chloride 100 mEq/L (98-107); Glucose 183 mg/dL (70-105); Osmolality,Calculated 293 (280-300); Potassium 3.5 mEq/L (3.5-5.1); Sodium 137 mEq/L (136-145); eGFR For African Americans > 60 (> 60); eGFR For Non-African Americans > 60 (> 60)
[2020-05-13] MEDS: Ipratropium/Albuterol Neb 3 ML IH SCH ×6 (03:32→23:55)
[2020-05-13] MEDS ORDERED: Doxycycline 100 MG in 0.9 % Sodium Chloride Mini Bag 100 ML IVPB SCH (06:00)
[2020-05-13] MEDS: Aspirin 81 MG TAB.CHEW PO SCH (07:36)
[2020-05-13] MEDS: DilTIAZem CD (24hr) 120 MG CAP.ER.24H PO SCH (07:36)
[2020-05-13] MEDS: Apixaban 5 MG TABLET PO SCH ×2 (07:36→19:54)
[2020-05-13] MEDS: Budesonide/Formoterol 160/4.5 1 PUFF INH IH SCH ×2 (07:37→20:10)
[2020-05-13] MEDS: Fluticasone Propionate Nasal 50 MCG/SPRAY BOTTLE NS SCH (07:37)
[2020-05-13] MEDS ORDERED: Piperacillin/Tazobactam 3.375 GM in 0.9 % Sodium Chloride Mini Bag 100 ML IVPB SCH (08:00)
[2020-05-13] MEDS ORDERED: Isovue-370 500 ML BOTTLE IVP ONE (10:20)
[2020-05-13] MEDS ORDERED: NON-FORMULARY MEDICATION 1 EACH EACH (Pantoprazole Sodium 40 MG) PO SCH (12:28)
[2020-05-13] MEDS: polyethylene glycoL 3350 17 GM POWD.PACK PO SCH (13:39)
[2020-05-14] MEDS: MethylPREDNISolone 40 MG/ML VIAL IVP SCH (02:59)
[2020-05-14] MEDS: Ipratropium/Albuterol Neb 3 ML IH SCH ×5 (04:12→20:39)
[2020-05-14 05:31] LABS: Basophils % 0.1 %; Hematocrit 33.8 % (37.5-50.1); Hemoglobin 10.9 g/dL (12.9-16.9); Immature Granulocytes % 0.9 % (0-4); Lymphocytes # 0.3 K/mcL (0.6-4.6); Lymphocytes % 1.8 %; Mean Corpuscular HGB Conc 32.2 g/dL (31.6-35.5); Mean Corpuscular Hemoglobin 26.1 pg (28.0-33.3); Mean Corpuscular Volume 81.1 fL (83.0-100.0); Mean Platelet Volume 9.4 fL (9.4-12.4); Monocytes # 0.5 K/mcL (0.0-1.3); Monocytes % 3.2 %; Neutrophils # 13.2 K/mcL (1.6-8.9); Platelet Count 307 K/mcL (140-400); Red Blood Count 4.17 M/mcL (4.19-5.50); Red Cell Distribution Width 17.1 % (11.5-14.5); White Blood Count 14.1 K/mcL (4.3-11.1)
[2020-05-14 05:51] LABS: BUN/Creatinine Ratio 59 (6-26); Blood Urea Nitrogen 22 mg/dL (8-23); Carbon Dioxide 30 mEq/L (23-29); Chloride 101 mEq/L (98-107); Glucose 156 mg/dL (70-105); Osmolality,Calculated 293 (280-300); Potassium 3.2 mEq/L (3.5-5.1); Sodium 138 mEq/L (136-145); eGFR For African Americans > 60 (> 60); eGFR For Non-African Americans > 60 (> 60)
[2020-05-14] MEDS: Budesonide/Formoterol 160/4.5 1 PUFF INH IH SCH ×2 (07:19→20:39)
[2020-05-14] MEDS ORDERED: MethylPREDNISolone 40 MG/ML VIAL IVP SCH (09:00)
[2020-05-14] MEDS: polyethylene glycoL 3350 17 GM POWD.PACK PO SCH (10:40)
[2020-05-14] MEDS: DilTIAZem CD (24hr) 120 MG CAP.ER.24H PO SCH (10:42)
[2020-05-14] MEDS: Aspirin 81 MG TAB.CHEW PO SCH (10:42)
[2020-05-14] MEDS: Apixaban 5 MG TABLET PO SCH ×2 (10:43→22:52)
[2020-05-14] MEDS: Fluticasone Propionate Nasal 50 MCG/SPRAY BOTTLE NS SCH (10:50)
[2020-05-14] MEDS: Cefdinir 300 MG CAPSULE PO SCH (22:52)
[2020-05-15] MEDS: Ipratropium/Albuterol Neb 3 ML IH SCH ×4 (00:27→11:11)
[2020-05-15 05:17] LABS: Hematocrit 35.4 % (37.5-50.1); Hemoglobin 10.8 g/dL (12.9-16.9); Immature Granulocytes % 0.6 % (0-4); Lymphocytes # 0.4 K/mcL (0.6-4.6); Lymphocytes % 4.2 %; Mean Corpuscular HGB Conc 30.5 g/dL (31.6-35.5); Mean Corpuscular Hemoglobin 25.1 pg (28.0-33.3); Mean Corpuscular Volume 82.3 fL (83.0-100.0); Mean Platelet Volume 9.2 fL (9.4-12.4); Monocytes # 0.5 K/mcL (0.0-1.3); Monocytes % 4.8 %; Neutrophils # 9.5 K/mcL (1.6-8.9); Platelet Count 315 K/mcL (140-400); Red Cell Distribution Width 17.4 % (11.5-14.5); Segmented Neutrophils % 90.4 %; White Blood Count 10.5 K/mcL (4.3-11.1)
[2020-05-15 05:39] LABS: BUN/Creatinine Ratio 49 (6-26); Blood Urea Nitrogen 18 mg/dL (8-23); Calcium 8.9 mg/dL (8.6-10.3); Carbon Dioxide 29 mEq/L (23-29); Chloride 102 mEq/L (98-107); Glucose 126 mg/dL (70-105); Osmolality,Calculated 289 (280-300); Potassium 4.2 mEq/L (3.5-5.1); Sodium 138 mEq/L (136-145); eGFR For African Americans > 60 (> 60); eGFR For Non-African Americans > 60 (> 60)
[2020-05-15] MEDS: Budesonide/Formoterol 160/4.5 1 PUFF INH IH SCH (07:27)
[2020-05-15] MEDS ORDERED: predniSONE 20 MG TABLET PO SCH (09:00)
[2020-05-15] MEDS: Cefdinir 300 MG CAPSULE PO SCH (09:08)
[2020-05-15] MEDS: polyethylene glycoL 3350 17 GM POWD.PACK PO SCH (09:08)
[2020-05-15] MEDS: Aspirin 81 MG TAB.CHEW PO SCH (09:09)
[2020-05-15] MEDS: DilTIAZem CD (24hr) 120 MG CAP.ER.24H PO SCH (09:09)
[2020-05-15] MEDS: Apixaban 5 MG TABLET PO SCH (09:09)
[2020-05-15] MEDS: Fluticasone Propionate Nasal 50 MCG/SPRAY BOTTLE NS SCH (09:10)
[2020-05-15 11:13] VITALS: BP 147/88
== END 2020-05-15 13:50 | DRG 193 ==
LOC: 2ANU 17:29 → EMEROOARM 17:29 → 2ANU 23:15 → SUATTDRO 05-13 17:28
PROVIDERS: ADMIT Internal Medicine; ATTEND Internal Medicine

== ENCOUNTER 2020-06-14 23:46 | Inpatient (IN) ==
[2020-06-14] MEDS ORDERED: methylPREDNISolone 125 MG in 0.9 % Sodium Chloride 100 ML IVPB ONE (23:50)
[2020-06-15] MEDS ORDERED: methylPREDNISolone 125 MG/2 ML VIAL IVP ONE (00:15)
[2020-06-15] MEDS ORDERED: Piperacillin/Tazobactam 3.375 GM in 0.9 % Sodium Chloride Mini Bag 100 ML IVPB ONE (00:59)
[2020-06-15] MEDS ORDERED: Azithromycin 500 MG in 0.9 % Sodium Chloride 250 ML IVPB ONE (01:01)
[2020-06-15] MEDS ORDERED: Vancomycin 2,000 MG/520 ML IV.SOLN IVPB ONE (01:05)
[2020-06-15 01:09] LABS: Adenovirus Not Detected (Not Detect); Bordetella Pertussis Not Detected (Not Detect); Chlamydophila pneumoniae Not Detected (Not Detect); Coronavirus 229E Not Detected (Not Detect); Coronavirus HKU1 Not Detected (Not Detect); Coronavirus NL63 Not Detected (Not Detect); Coronavirus OC43 Not Detected (Not Detect); Human Metapneumovirus Not Detected (Not Detect); Human Rhinovirus/Enterovirus Not Detected (Not Detect); Influenza A Subtype 2009 H1 Not Detected (Not Detect); Influenza B Not Detected (Not Detect); Mycoplasma pneumoniae Not Detected (Not Detect); Parainfluenza Virus 1 Not Detected (Not Detect); Parainfluenza Virus 2 Not Detected (Not Detect); Parainfluenza Virus 3 Not Detected (Not Detect); Parainfluenza Virus 4 Not Detected (Not Detect); Respiratory Syncytial Virus Not Detected (Not Detect); SARS-CoV-2 Not Detected (Not Detect)
[2020-06-15 01:11] LABS: Basophils % 0.3 %; Eosinophils % 0.2 %; Hematocrit 37.5 % (37.5-50.1); Immature Granulocytes % 0.6 % (0-4); Lymphocytes # 0.5 K/mcL (0.6-4.6); Lymphocytes % 4.6 %; Mean Corpuscular HGB Conc 29.3 g/dL (31.6-35.5); Mean Corpuscular Hemoglobin 26.5 pg (28.0-33.3); Monocytes # 0.4 K/mcL (0.0-1.3); Monocytes % 3.8 %; Neutrophils # 10.4 K/mcL (1.6-8.9); Platelet Count 400 K/mcL (140-400); Red Blood Count 4.15 M/mcL (4.19-5.50); Red Cell Distribution Width 15.4 % (11.5-14.5); Segmented Neutrophils % 90.5 %; White Blood Count 11.5 K/mcL (4.3-11.1)
[2020-06-15 01:13] LABS: Mean Corpuscular Volume 90.4 fL (83.0-100.0)
[2020-06-15 01:21] LABS: VBG HCO3 35 mEq/L (21-27); VBG PCO2 34 mmHg (41-51); VBG PH 7.63 pH Units (7.32-7.42); VBG PO2 196 mmHg (25-50)
[2020-06-15 01:32] LABS: Troponin I < 0.03 ng/mL (< 0.04)
[2020-06-15 01:45] LABS: BUN/Creatinine Ratio 56 (6-26); Blood Urea Nitrogen 18 mg/dL (8-23); Calcium 8.6 mg/dL (8.6-10.3); Carbon Dioxide 33 mEq/L (23-29); Chloride 95 mEq/L (98-107); Glucose 118 mg/dL (70-105); Osmolality,Calculated 293 (280-300); Potassium 4.2 mEq/L (3.5-5.1); Sodium 140 mEq/L (136-145); eGFR For African Americans > 60 (> 60); eGFR For Non-African Americans > 60 (> 60)
[2020-06-15] MEDS ORDERED: Naloxone 0.4 MG/ML INJ IVP PRN (04:21)
[2020-06-15] MEDS: Piperacillin/Tazobactam 3.375 GM in 0.9 % Sodium Chloride Mini Bag 100 ML IVPB SCH ×2 (07:50→17:43)
[2020-06-15] MEDS: Apixaban 5 MG TABLET PO SCH ×3 (07:55→21:08)
[2020-06-15] MEDS ORDERED: Vancomycin 1 EACH in 0.9 % Sodium Chloride 250 ML IVPB SCH (08:00)
[2020-06-15] MEDS ORDERED: Ipratropium/Albuterol Neb 3 ML ONE (08:08)
[2020-06-15] MEDS: Ipratropium/Albuterol Neb 3 ML IH SCH ×4 (08:13→20:12)
[2020-06-15] MEDS ORDERED: Bisacodyl 10 MG RECTAL SUPPOSITORY RC PRN (08:38)
[2020-06-15] MEDS ORDERED: Acetaminophen 650 MG RECTAL SUPP RC PRN (08:38)
[2020-06-15] MEDS ORDERED: Sennosides 8.6 MG TABLET PO PRN (08:38)
[2020-06-15] MEDS ORDERED: *HR* LORazepam 0.5 MG TABLET PO PRN (08:38)
[2020-06-15] MEDS: DilTIAZem CD (24hr) 120 MG CAP.ER.24H PO SCH (10:47)
[2020-06-15] MEDS: Loratadine 10 MG TABLET PO SCH (10:47)
[2020-06-15] MEDS: Aspirin 81 MG TAB.CHEW PO SCH (10:47)
[2020-06-15] MEDS: Tiotropium 18 MCG inhalation IH SCH (11:07)
[2020-06-15] MEDS: Budesonide/Formoterol 160/4.5 1 PUFF INH IH SCH ×2 (11:31→20:12)
[2020-06-15] MEDS ORDERED: haloperidoL 1 MG TABLET PO PRN (13:04)
[2020-06-15] MEDS: MethylPREDNISolone 40 MG/ML VIAL IVP SCH (15:55)
[2020-06-15] MEDS: Levalbuterol Neb 1.25 MG/3 ML IH SCH (23:48)
[2020-06-15] MEDS: Ipratropium Neb 0.5 MG NEBULIZER IH SCH (23:48)
[2020-06-16] MEDS: Piperacillin/Tazobactam 3.375 GM in 0.9 % Sodium Chloride Mini Bag 100 ML IVPB SCH ×3 (00:50→18:15)
[2020-06-16] MEDS: MethylPREDNISolone 40 MG/ML VIAL IVP SCH ×2 (00:51→10:04)
[2020-06-16 02:06] LABS: Basophils % 0.1 %; Hematocrit 32.3 % (37.5-50.1); Hemoglobin 9.8 g/dL (12.9-16.9); Immature Granulocytes % 0.3 % (0-4); Lymphocytes # 0.3 K/mcL (0.6-4.6); Lymphocytes % 4.6 %; Mean Corpuscular HGB Conc 30.3 g/dL (31.6-35.5); Mean Corpuscular Hemoglobin 27.1 pg (28.0-33.3); Mean Corpuscular Volume 89.5 fL (83.0-100.0); Mean Platelet Volume 8.7 fL (9.4-12.4); Monocytes # 0.4 K/mcL (0.0-1.3); Neutrophils # 6.7 K/mcL (1.6-8.9); Platelet Count 437 K/mcL (140-400); Red Blood Count 3.61 M/mcL (4.19-5.50); Red Cell Distribution Width 14.6 % (11.5-14.5); White Blood Count 7.5 K/mcL (4.3-11.1)
[2020-06-16 02:40] LABS: BUN/Creatinine Ratio 55 (6-26); Blood Urea Nitrogen 18 mg/dL (8-23); Calcium 8.3 mg/dL (8.6-10.3); Carbon Dioxide 42 mEq/L (23-29); Chloride 96 mEq/L (98-107); Glucose 242 mg/dL (70-105); Magnesium 2.1 mg/dL (1.6-2.6); Osmolality,Calculated 302 (280-300); Phosphorous 1.9 mg/dL (2.7-4.5); Potassium 4.1 mEq/L (3.5-5.1); Sodium 141 mEq/L (136-145); eGFR For African Americans > 60 (> 60); eGFR For Non-African Americans > 60 (> 60)
[2020-06-16] MEDS: Ipratropium Neb 0.5 MG NEBULIZER IH SCH ×5 (03:52→20:15)
[2020-06-16] MEDS: Levalbuterol Neb 1.25 MG/3 ML IH SCH ×5 (03:52→20:15)
[2020-06-16] MEDS: Budesonide/Formoterol 160/4.5 1 PUFF INH IH SCH ×2 (07:21→20:15)
[2020-06-16] MEDS: Tiotropium 18 MCG inhalation IH SCH (07:23)
[2020-06-16] MEDS ORDERED: DILTIAZEM HCL 120 MG PO SCH (09:00)
[2020-06-16] MEDS: DilTIAZem CD (24hr) 120 MG CAP.ER.24H PO SCH (10:04)
[2020-06-16] MEDS: Loratadine 10 MG TABLET PO SCH (10:04)
[2020-06-16] MEDS: Aspirin 81 MG TAB.CHEW PO SCH (10:04)
[2020-06-16] MEDS: Apixaban 5 MG TABLET PO SCH ×2 (10:04→19:44)
[2020-06-16] MEDS ORDERED: DilTIAZem CD (24hr) 120 MG CAP.ER.24H PO ONE (14:18)
[2020-06-16] MEDS ORDERED: MethylPREDNISolone 40 MG/ML VIAL IVP SCH (18:00)
[2020-06-17] MEDS: Levalbuterol Neb 1.25 MG/3 ML IH SCH ×4 (00:08→11:30)
[2020-06-17] MEDS: Ipratropium Neb 0.5 MG NEBULIZER IH SCH ×4 (00:09→11:30)
[2020-06-17] MEDS: Piperacillin/Tazobactam 3.375 GM in 0.9 % Sodium Chloride Mini Bag 100 ML IVPB SCH ×2 (01:21→08:12)
[2020-06-17 06:49] VITALS: BP 118/73
[2020-06-17] MEDS: Budesonide/Formoterol 160/4.5 1 PUFF INH IH SCH (07:17)
[2020-06-17] MEDS: Loratadine 10 MG TABLET PO SCH (08:11)
[2020-06-17] MEDS: Aspirin 81 MG TAB.CHEW PO SCH (08:11)
[2020-06-17] MEDS: DilTIAZem CD (24hr) 120 MG CAP.ER.24H PO SCH (08:12)
[2020-06-17] MEDS: Apixaban 5 MG TABLET PO SCH (08:12)
[2020-06-17] MEDS ORDERED: predniSONE 20 MG TABLET PO SCH (09:00)
[2020-06-17 09:21] LABS: Magnesium 1.9 mg/dL (1.6-2.6); Phosphorous 2.4 mg/dL (2.7-4.5)
[2020-06-17 09:27] LABS: BUN/Creatinine Ratio 41 (6-26); Blood Urea Nitrogen 13 mg/dL (8-23); Calcium 8.4 mg/dL (8.6-10.3); Carbon Dioxide 43 mEq/L (23-29); Chloride 95 mEq/L (98-107); Glucose 127 mg/dL (70-105); Osmolality,Calculated 296 (280-300); Potassium 3.8 mEq/L (3.5-5.1); Sodium 142 mEq/L (136-145); eGFR For African Americans > 60 (> 60); eGFR For Non-African Americans > 60 (> 60)
== END 2020-06-17 14:40 | DRG 193 ==
LOC: 3BNU 23:46 → EMEROOARM 23:46 → SUATTDRO 06-15 01:56 → 3BNU 06-15 02:39
PROVIDERS: ADMIT Family Medicine; ATTEND Internal Medicine